=== PATIENT | male | born 1965 | race Caucasian/White ===

== ENCOUNTER 2020-04-26 19:00 | Emergency (ER) | payer OTHER ==
[~2020-04-26] VITALS: Ht 167.6 cm; Wt 86.2 kg
[2020-04-26] MEDS ORDERED: CRESTOR10 MG (19:11)
[2020-04-26] MEDS ORDERED: ZESTRIL10 M1 (19:11)
[2020-04-27] MEDS ORDERED: BACTRIM DS TAB1 EACH PO (00:52)
[2020-04-27] MEDS ORDERED: INTESTINEX680 M1 PO (00:52)
== END 2020-04-27 00:54 ==
LOC: ER 19:00
DX: L03.115 Cellulitis of right lower limb (principal); Z20.828 Contact with and (suspected) exposure to other viral communicable diseases